=== PATIENT | female | born 1965 | race Caucasian/White ===

== ENCOUNTER 2018-07-27 09:32 | Observation (INO) ==
--- NOTE | 2018-07-27 10:03 | Emergency Department Note ---
Disposition Clinical Impression: Pituitary abnormality, Dizziness Concussion without loss of consciousness Qualifiers: Encounter type: initial encounter Qualified Code(s): S06.0X0A - Concussion without loss of consciousness, initial encounter Urinary tract infection Qualifiers: Urinary tract infection type: acute cystitis Hematuria presence: with hematuria Qualified Code(s): N30.01 - Acute cystitis with hematuria Disposition: Admitted As Inpatient Condition: Fair Time of Disposition: 12:57 Fall HPI - General Chief Complaint: ED Fall Stated Complaint: Fall/Left foot pain/Pain all over Time Seen by Provider: 07/27/18 09:39 Source: patient Mode of arrival: ambulatory Limitations: no limitations Nursing Notes Reviewed: Yes Vital Signs Reviewed: Yes - History of Present Illness HPI Narrative: Nontoxic-appearing 52-year-old female on current anticoagulation for previous pulmonary embolisms with Xarelto presents for evaluation of a fall injury sustained just prior to arrival. The patient states a history of an inoperable pituitary gland tumor that causes her to be "off balance at times". The patient states she was walking down steps in her home when she tripped and fell , landing on her back and striking the back of her head on the hardwood floor. This fall was witnessed by her significant other. She denies any loss of consciousness. She denies any vomiting. She denies any visual disturbances. She denies any prodromal chest pain, palpitations, chest pain, shortness of breath. She complains of a headache, neck pain, and left foot pain at the time of presentation. She follows with Dr. Raza, neurologist at this facility. She last saw him 2 weeks ago and was told that she need not return until one year later for follow-up, sooner should problems arise. She does admit to worsening "dizziness and being off balance" over the past couple of months. Pt Subjective Complaint: fall Onset (ago): Just TIN FLOPPER Fall From: down stairs (#) Fall Witnessed: yes Place Fall Occurred: home Loss of Consciousness: none Prolonged Down Time?: no Context: tripped/slipped Location of injury: head, neck Location of injury - extremities: Left: foot Severity: moderate Associated symptoms (after fall): Reports: headache, neck pain. Denies: numbness, weakness, chest pain, shortness of breath, abdominal pain, lightheaded , vertigo, confusion - Related Data Home Medications Medication Instructions Recorded Confirmed Ascorbate Calcium [Vitamin C] 500 mg PO DAILY 05/02/18 06/27/18 Bromocriptine Mesylate [Parlodel] 5 mg PO DAILY 05/02/18 06/27/18 Calcium Carbonate [Calcium] 1,500 mg PO DAILY 05/02/18 06/27/18 Carvedilol [Coreg] 6.25 mg PO BID 05/02/18 06/27/18 Docusate Sodium [Colace] 100 mg PO DAILY 05/02/18 06/27/18 Furosemide [Lasix] 20 mg PO HS 05/02/18 06/27/18 Insulin Glargine,Hum.rec.anlog 63 unit SQ HS 05/02/18 06/27/18 [Basaglar Kwikpen U-100] Lisinopril [Zestril] 5 mg PO DAILY 05/02/18 06/27/18 Multivitamin [One Daily Essential] 1 tab PO DAILY 05/02/18 06/27/18 Potassium Chloride [K-Tab ER] 20 meq PO DAILY 05/02/18 06/27/18 Pregabalin [Lyrica] 75 mg PO TID 05/02/18 06/27/18 Vilazodone HCl [Viibryd] 40 mg PO DAILY 05/02/18 06/27/18 diazePAM [Valium] 10 mg PO TID 05/02/18 06/27/18 Mupirocin [Bactroban Oint] 1 appl TP DAILY 05/28/18 06/27/18 Rivaroxaban [Xarelto] 20 mg PO DAILY 05/28/18 06/27/18 Spironolactone [Aldactone] 25 mg PO BID 05/28/18 06/27/18 Previous Rx's Medication Instructions Recorded Acetaminophen [Tylenol] 650 mg PO Q6HR PRN tablet 05/07/18 Atorvastatin [Lipitor] 40 mg PO HS tablet 05/07/18 Furosemide [Lasix] 40 mg PO QAM tablet 05/07/18 Loratadine [Claritin] 10 mg PO DAILY tablet 05/07/18 Omeprazole [PriLOSEC] 20 mg PO DAILY capsule. 05/07/18 Judah Williamson [WHEELED WALKER] 1 each .ROUTE AD #1 each 05/07/18 Rivaroxaban [Xarelto] 20 mg PO DAILY #30 tablet 06/27/18 Allergies Allergy/AdvReac Type Severity Reaction Status Date / Time Penicillins Allergy Swelling Verified 06/27/18 13:56 of Lip/Tongue/Throat codeine AdvReac Vomiting Verified 06/27/18 13:56 All systems ED: reviewed and negative except as stated. Review of Systems: As Per HPI Constitutional: Denies: fever, chills, weakness, weight change Eyes: Denies: eye pain, eye discharge, vision change ENT ED: Denies: ear pain, throat pain, dental pain, hearing loss, epistaxis, congestion, dysphagia Cardiovascular: Denies: chest pain, palpitations, dyspnea on exertion, edema, syncope Respiratory: Denies: cough, dyspnea, wheezes, hemoptysis, stridor Gastrointestinal: Denies: abdominal pain, nausea, vomiting, diarrhea, constipation, hematemesis, melena, hematochezia Genitourinary: Denies: dysuria, frequency, hematuria, discharge Musculoskeletal: Reports: as per HPI, neck pain, arthralgia (left foot pain). Denies: back pain, myalgia Integumentary: Denies: rash, abrasion, lesions Neurological: Reports: as per HPI, headache. Denies: weakness, numbness, paresthesias, confusion, abnormal gait, vertigo Psychiatric: Denies: anxiety, depression, suicidal thoughts, homicidal thoughts , auditory hallucinations, visual hallucinations Endocrine: Denies: fatigue Hematological/Lymphatic: Denies: easy bleeding, easy bruising Allergic/Immunologic: Denies: facial swelling, urticaria Fall PMH - Past Medical History Medical history: Reports: diabetes, hypertension, other Surgical history: Reports: cholecystectomy (1991), orthopedic, other (carpal tunnel both wrists 2008), other (one ovary removed 2012) Psychiatric history: Reports: anxiety, depression - Social History Smoking Status: 2nd Hand Smoke Exposure Alcohol use: Reports: none Drug use: Reports: none Physical Exam - General Limitations: no limitations General appearance: alert, in no apparent distress - Head Head exam: atraumatic, normocephalic, normal inspection - Expanded Head Exam Head exam physicial: Absent: laceration, abrasion, contusion, hematoma, raccoon eyes, Sun's sign - Eye Eye exam: Present: normal appearance, PERRL, EOMI. Absent: nystagmus - ENT ENT exam: mucous membranes moist - Expanded ENT Exam External ear exam: Present: normal external inspection TM/Canal: Hemotympanum: Negative, Erythema: Negative, Bulging: Negative, Effusion: Negative, Perforation: Negative, Loss of Landmarks: Negative, Foreign body: Negative, Cerumen impaction: Negative, Canal discharge: Negative, Canal tenderness: Negative Nose exam: negative: rhinorrhea - Neck Neck exam: Present: normal inspection, full ROM, tenderness (Midline, cervical spine) - Chest Chest inspection: Present: normal inspection, symmetric chest wall rise - Respiratory Respiratory exam: Present: normal lung sounds bilaterally, respiratory distress. Absent: wheezes, stridor, accessory muscle use, prolonged expiratory phase - Cardiovascular Cardiovascular exam: Present: regular rate, normal rhythm, normal heart sounds - Abdominal Exam Abdominal exam: Present: soft, Non-Tender, normal bowel sounds. Absent: trauma - Extremities Exam Extremities exam: Present: normal inspection - Expanded Lower Extremity Exam Knee exam: Present: normal inspection, full ROM Lower leg exam: Present: normal inspection, full ROM Ankle exam: Present: normal inspection, full ROM. Absent: tenderness, tenderness over talofibular lig Foot/toe exam: Present: tenderness (distal/lateral left foot). Absent: swelling , ecchymosis, deformity, calcaneal tenderness, tenderness at base of 5th metatarsal Neurovascular/Tendon exam: Present: normal capillary refill. Absent: pulse deficit, tendon deficit, extremity cold to touch - Back Exam Back exam: Present: normal inspection, full ROM. Absent: tenderness, vertebral tenderness - Neurological Exam Neurological exam: Present: alert, oriented X3 - Expanded Neurological Exam Patient oriented to: Present: person, place, time Motor strength - LUE: 5/5 Motor strength - RUE: 5/5 Motor strength - LLE: 5/5 Motor strength - RLE: 5/5 Coma Scale Eye Opening: Spontaneous Coma Scale Motor Response: Obeys Commands Coma Scale Verbal Response: Oriented Coma Scale Total: 15 - Psychiatric Psychiatric exam: Present: normal affect, normal mood - Skin Skin exam: Present: warm, dry, intact, normal color Course Course Narrative: 4065: I spoke with Dr. Tirado, neurology degreasing solution reclaimer. Dr. Tirado states that if we feel that admission to the hospital is warranted for observation and potential further imaging, that neurology would see the patient in house. He does request if that is the case, that we repeat an MRI of the brain without repeat MRA. I have discussed this patient's case, history, radiology work up, and discussion with neurology with Dr. Barber, ED attending. Dr. Barber does in fact recommend admission to the hospital for further observation. I have discussed this plan with the patient and her spouse, both being in agreement with this plan. 1128: I spoke with the admitting hospitalist regarding admission to the hospitalist care with neurology consultation. The hospitalist requests screening labs be performed prior to further discussion regarding admission to the hospitalist care. 1250: I spoke with the admitting hospitalist again. The patient has been accepted to the hospitalist service with inpatient neurology consultation. IV fluids and IV antibiotics will be given. Urinalysis did show a nitrite positive urinary tract infection. Vital Signs Temperature 98.0 F 07/27/18 09:38 Pulse Rate 84 07/27/18 09:38 Respiratory Rate 18 07/27/18 09:38 Blood Pressure 106/54 07/27/18 09:38 O2 Sat by Pulse Oximetry 95 07/27/18 09:38 Temperature 98.0 F 07/27/18 09:50 Pulse Rate 77 07/27/18 12:42 Respiratory Rate 13 07/27/18 12:42 Blood Pressure 106/80 07/27/18 12:42 O2 Sat by Pulse Oximetry 95 07/27/18 12:42 Oxygen Delivery Oxygen Delivery Room Air Fall - Medical Records Medical records reviewed: Yes I reviewed the patient's medical records. - Lab Data Lab results narrative: Lab Results 07/27/18 07/27/18 07/27/18 Range/Units 11:48 12:07 12:07 WBC 11.6 H (4.3-11.1) K/mcL RBC 4.61 (3.82-4.97) M/mcL Hgb 13.9 (11.5-15.4) g/dL Hct 40.0 (35.3-44.9) % MCV 86.8 (83.0-100.0) fL MCH 30.2 (28.0-33.3) pg MCHC 34.8 (31.6-35.5) g/dL RDW 13.0 (11.5-14.5) % Plt Count 220 (140-400) K/mcL MPV 10.4 (9.4-12.4) fL Immature Gran % 0.4 (0-4) % Seg Neutrophils % 69.1 % Lymphocytes % 21.2 % Monocytes % 6.7 % Eosinophils % 2.3 % Basophils % 0.3 % Neutrophils # 8.0 (1.6-8.9) K/mcL Lymphocytes # 2.5 (0.6-4.6) K/mcL Monocytes # 0.8 (0.0-1.3) K/mcL Eosinophils # 0.3 (0.0-0.6) K/mcL Basophils # 0.0 (0.0-0.2) K/mcL Sodium 136 (136-145) mEq/L Potassium 4.5 (3.5-5.1) mEq/L Chloride 99 (98-107) mEq/L Carbon Dioxide 28 (23-29) mEq/L BUN 19 (6-20) mg/dL Creatinine 1.40 H (0.60-1.20) mg/dL Est GFR ( Amer) 48 L (> 60) Est GFR (Non-Af Amer) 40 L (> 60) BUN/Creatinine Ratio 14 (6-26) Glucose 191 H (70-105) mg/dL Calculated Osmolality 289 (280-300) Calcium 9.8 (8.6-10.3) mg/dL Troponin I < 0.03 (< 0.04) ng/mL Urine Color Yellow (Yellow) Urine Clarity Hazy A (Clear) Urine pH 6.0 (5.0-8.0) pH Units Ur Specific [place] 1.011 (1.010-1.025) Urine Protein 30 H (Neg-Trace) mg/dL Urine Glucose (UA) Normal (Normal) mg/dL Urine Ketones Negative (Negative) mg/dL Urine Blood Large H (Negative) Urine Nitrite Positive A (Negative) Urine Bilirubin Negative (Negative) Urine Urobilinogen Normal (Normal) mg/dL Ur Leukocyte Esterase Moderate H (Negative) Urine Microscopic RBC TNTC H (0-3) per hpf Urine Microscopic WBC 50-100 H (0-3) per hpf Ur Squamous Epith Cells Many H (None-Few) per lpf Urine Bacteria Many H (None-Few) per hpf Hyaline Casts None Seen (None-Few) per lpf Ur Culture Indicated? NO. A (NO) Result diagrams: 07/27/18 12:07 10/13/18 12:07 Lab Results 07/27/18 07/27/18 07/27/18 Range/Units 11:48 12:07 12:07 WBC 11.6 H (4.3-11.1) K/mcL RBC 4.61 (3.82-4.97) M/mcL Hgb 13.9 (11.5-15.4) g/dL Hct 40.0 (35.3-44.9) % MCV 86.8 (83.0-100.0) fL MCH 30.2 (28.0-33.3) pg MCHC 34.8 (31.6-35.5) g/dL RDW 13.0 (11.5-14.5) % Plt Count 220 (140-400) K/mcL MPV 10.4 (9.4-12.4) fL Immature Gran % 0.4 (0-4) % Seg Neutrophils % 69.1 % Lymphocytes % 21.2 % Monocytes % 6.7 % Eosinophils % 2.3 % Basophils % 0.3 % Neutrophils # 8.0 (1.6-8.9) K/mcL Lymphocytes # 2.5 (0.6-4.6) K/mcL Monocytes # 0.8 (0.0-1.3) K/mcL Eosinophils # 0.3 (0.0-0.6) K/mcL Basophils # 0.0 (0.0-0.2) K/mcL Sodium 136 (136-145) mEq/L Potassium 4.5 (3.5-5.1) mEq/L Chloride 99 (98-107) mEq/L Carbon Dioxide 28 (23-29) mEq/L BUN 19 (6-20) mg/dL Creatinine 1.40 H (0.60-1.20) mg/dL Est GFR ( Amer) 48 L (> 60) Est GFR (Non-Af Amer) 40 L (> 60) BUN/Creatinine Ratio 14 (6-26) Glucose 191 H (70-105) mg/dL Calculated Osmolality 289 (280-300) Calcium 9.8 (8.6-10.3) mg/dL Troponin I < 0.03 (< 0.04) ng/mL Urine Color Yellow (Yellow) Urine Clarity Hazy A (Clear) Urine pH 6.0 (5.0-8.0) pH Units Ur Specific [place] 1.011 (1.010-1.025) Urine Protein 30 H (Neg-Trace) mg/dL Urine Glucose (UA) Normal (Normal) mg/dL Urine Ketones Negative (Negative) mg/dL Urine Blood Large H (Negative) Urine Nitrite Positive A (Negative) Urine Bilirubin Negative (Negative) Urine Urobilinogen Normal (Normal) mg/dL Ur Leukocyte Esterase Moderate H (Negative) Urine Microscopic RBC TNTC H (0-3) per hpf Urine Microscopic WBC 50-100 H (0-3) per hpf Ur Squamous Epith Cells Many H (None-Few) per lpf Urine Bacteria Many H (None-Few) per hpf Hyaline Casts None Seen (None-Few) per lpf Ur Culture Indicated? NO. A (NO) - Radiology Data Radiology results reviewed: Yes I reviewed the patient's radiology results. Cervical Spine CT 07/27/18 09:57 IMPRESSION: No acute fracture or listhesis of the cervical spine evident. D/ / Donta Salinas MD / Donta Salinas MD Interpreting Provider: Donta Salinas MD Foot X-Ray 07/27/18 09:57 IMPRESSION: Negative D/ / Young Watson MD / Young Watson MD Interpreting Provider: Young Watson MD Head CT 07/27/18 09:57 IMPRESSION: No acute intracranial abnormality. D/ / Antonella Stanley MD / Antonella Stanley MD Interpreting Provider: Antonella Stanley MD - EKG Data EKG attestation: Yes I reviewed and interpreted this EKG. EKG results narrative: EKG shows sinus rhythm at a rate of 75 bpm. ID interval 143, QRS duration 91, QT/QTc interval 390/436. No ectopy noted. No ST elevation. No significant changes when compared to an EKG dated from 05/02/18. Attestation Statement - Attestation Attestation: For this encounter, I have reviewed the [employer] or PA documentation, treatment plan, and medical decision making; and I have had face to face time with this patient. Pt is a 52 yo wf, hx of pituitary tumor with chronic dizziness and hx of multiple falls, who presents to the ER wiht c/o worsening dizziness, fall TIN FLOPPER with CHI and neck pain, foot pain s/p fall. Pt reports that her dizziness has worsened over the past few weeks, and was seen by her Neurologist, who ordered outpt MRI/MRA. Patient states she was called yesterday and told that her imaging studies were normal. Patient's had continued symptoms and more frequent and more intense dizziness. Patient fell this morning and sustained head injury and is on blood thinners, patient takes Xarelto for PE. Patient denies any preceding shortness of breath, chest pain or palpitations, no lower extremity pain or cramping. Patient had no vomiting, no visual changes, no focal neurologic deficits. GCS equals 15 on arrival. I agree with patient's physical exam findings as documented. Vital signs are stable. Patient underwent CT imaging of the head neck which were unremarkable for any cranial hemorrhage or changes. Patient's foot film was also within normal limits. Reviewed patient's MRI/MRA that she had recently and concerned with findings of MCA narrowing. Patient has no other old imaging study for comparison. Spoke with neurology out of concern for observation with serial CT imaging due to anticoagulants as well as MCA findings on MRA and they agreed to consult on the patient. Case was discussed with hospitalist who requested baseline labs be performed. Laboratory evaluation was unremarkable with the exception of UTI patient was started on antibiotics. Patient will be admitted to the hospitalist service for further evaluation and management.
[2018-07-27] MEDS ORDERED: *HR* HYDROcodone/Acet 5/325 mg TABLET PO ONE ×2 (10:41→17:05)
[2018-07-27 12:07] LABS: Bilirubin,Urine Negative (Negative); Blood,Urine Large (Negative); Color,Urine Yellow (Yellow); Glucose,Urine (UA) Normal (Normal); Ketones,Urine Negative (Negative); Leukocyte Esterase,Urine Moderate (Negative); Nitrite,Urine Positive (Negative); Protein,Urine 30 mg/dL (Neg-Trace); Specific Gravity,Urine 1.011 (1.010-1.025); Urobilinogen,Urine Normal (Normal)
[2018-07-27 12:09] LABS: Bacteria,Urine Many per hpf (None-Few); Hyaline Casts,Urine None Seen per lpf (None-Few); RBC,Urine TNTC per hpf (0-3); Squamous Epithelial Cell,Urine Many per lpf (None-Few); WBC,Urine 50-100 per hpf (0-3)
[2018-07-27 12:10] LABS: Clarity,Urine Hazy (Clear)
[2018-07-27 12:24] LABS: Basophils % 0.3 %; Eosinophils # 0.3 K/mcL (0.0-0.6); Eosinophils % 2.3 %; Hemoglobin 13.9 g/dL (11.5-15.4); Immature Granulocytes % 0.4 % (0-4); Lymphocytes # 2.5 K/mcL (0.6-4.6); Lymphocytes % 21.2 %; Mean Corpuscular HGB Conc 34.8 g/dL (31.6-35.5); Mean Corpuscular Hemoglobin 30.2 pg (28.0-33.3); Mean Corpuscular Volume 86.8 fL (83.0-100.0); Mean Platelet Volume 10.4 fL (9.4-12.4); Monocytes # 0.8 K/mcL (0.0-1.3); Monocytes % 6.7 %; Platelet Count 220 K/mcL (140-400); Red Blood Count 4.61 M/mcL (3.82-4.97); Segmented Neutrophils % 69.1 %
[2018-07-27 12:45] LABS: BUN/Creatinine Ratio 14 (6-26); Blood Urea Nitrogen 19 mg/dL (6-20); Calcium 9.8 mg/dL (8.6-10.3); Carbon Dioxide 28 mEq/L (23-29); Chloride 99 mEq/L (98-107); Glucose 191 mg/dL (70-105); Osmolality,Calculated 289 (280-300); Potassium 4.5 mEq/L (3.5-5.1); Sodium 136 mEq/L (136-145); eGFR For Non-African Americans 40 (> 60)
[2018-07-27 12:46] LABS: Troponin I < 0.03 ng/mL (< 0.04)
[2018-07-27] MEDS ORDERED: 0.9 % Sodium Chloride 1,000 ML IVC ONE (12:48)
--- NOTE | 2018-07-27 13:17 | Internal Med History&Physical ---
Date of Encounter: 07/27/18 Time of Encounter: 13:11 Internal Medicine - H&P: HPI Chief complaint: fall Admitted From: Home Plans for Post Hospital Care: Home History of present illness: Ms. Crawford is a 52 year old morbidly obese female with history of PE on xarelto , noperable pituitary gland tumor, difficulty with balance, DM and HFpEF presented to the emergency department with complaint of fall. As per patient she was walking down steps from her kitchen to her laundry room where she tripped and fell, landing on her back and striking the back of her head on the hardwood floor. The fall was witnessed by her . He denies any loss of consciousness, palpitations prior to the fall, vision changes, foaming at the mouth, abnormal movements of her extremities or bowel/bladder incontinence. Since she is on xarelto decided to bring her to the emergency department. She reports that she has had problems with her balance for the past [address] Raza who is a neurologist at [facility] for her symptoms. She reports that she recently had an MRI performed and was called by Dr. Cardenas nurse and was told that her MRI was not significant for any acute findings and was told to continue her medications as prescribed. She does report that her urine has changed color in the past few weeks, denies foul smell to her urine, denies hematuria, she does report incontinence and has to wear pads, she also reports itching and mild dysuria. She does have history of urinate tract infections. She reports that she followed up with a doctor at [facility] who recommended her to only have 2 small glasses of fluid a day and she is been compliant with it. She denies fever, chills, nausea, vomiting, diarrhea, chest pain, palpitations, shortness of breath. She is compliant with all her medications. In the ED CT head was performed which was negative for any acute intracranial abnormality, x-ray of the left foot was performed which was negative for any acute fracture, CT of the cervical spine was performed and it did not show any acute fractures. Neurology was consulted by the emergency department physician who recommended to continue her home medications and obtain an MRI without contrast. Past Med Surg Social Fam HX - Past Medical History Medical history: diabetes, hypertension, other Additional medical history: pituitary tumor- inoperable Psychiatric history: anxiety, depression - Past Surgical History Surgical History: cholecystectomy (1991), orthopedic, other (carpal tunnel both wrists 2008), other (one ovary removed 2012) Additional surgical history: RIGHT OVARECTOMY, AND BILATERAL CARPAL TUNNEL SX. - Social History Smoking Status: 2nd Hand Smoke Exposure Smokeless Tobacco Status: No Alcohol use: none Drug use: none - Family History Paternal Hx Family Cardiac Disorders: Yes (fater and mother) Father Living Status: Hx Family Cardiac Disorders: Yes (leaky heart valve) Mother Living Status: Still Living Hx Family Cardiac Disorders: Yes (HTN) Hx Family Endocrine Disorder: Yes (DIABETES MELLITUS.) Internal Medicine - H&P: Meds Ascorbate Calcium [Vitamin C] 500 mg PO DAILY 05/02/18 [History] Bromocriptine Mesylate [Parlodel] 5 mg PO DAILY 05/02/18 [History] Calcium Carbonate [Calcium] 1,500 mg PO DAILY 05/02/18 [History] Carvedilol [Coreg] 6.25 mg PO BID 05/02/18 [History] Docusate Sodium [Colace] 100 mg PO DAILY 05/02/18 [History] Furosemide [Lasix] 20 mg PO HS 05/02/18 [History] Insulin Glargine,Hum.rec.anlog [Basaglar Kwikpen U-100] 63 unit SQ HS 05/02/18 [ History] Lisinopril [Zestril] 5 mg PO DAILY 05/02/18 [History] Multivitamin [One Daily Essential] 1 tab PO DAILY 05/02/18 [History] Potassium Chloride [K-Tab ER] 20 meq PO DAILY 05/02/18 [History] Pregabalin [Lyrica] 75 mg PO TID 05/02/18 [History] Vilazodone HCl [Viibryd] 40 mg PO DAILY 05/02/18 [History] diazePAM [Valium] 10 mg PO TID 05/02/18 [History] Acetaminophen [Tylenol] 650 mg PO Q6HR PRN tablet 05/07/18 [Rx] Atorvastatin [Lipitor] 40 mg PO HS tablet 05/07/18 [Rx] Furosemide [Lasix] 40 mg PO QAM tablet 05/07/18 [Rx] Loratadine [Claritin] 10 mg PO DAILY tablet 05/07/18 [Rx] Omeprazole [PriLOSEC] 20 mg PO DAILY capsule. 05/07/18 [Rx] Walker W Wheels [WHEELED WALKER] 1 each .ROUTE AD #1 each 05/07/18 [Rx] Mupirocin [Bactroban Oint] 1 appl TP DAILY 05/28/18 [History] Rivaroxaban [Xarelto] 20 mg PO DAILY 05/28/18 [History] Spironolactone [Aldactone] 25 mg PO BID 05/28/18 [History] Rivaroxaban [Xarelto] 20 mg PO DAILY #30 tablet 06/27/18 [Rx] 3 Allergy/AdvReac Type Severity Reaction Status Date / Time Penicillins Allergy Swelling Verified 06/27/18 13:56 of Lip/Tongue/Throat codeine AdvReac Vomiting Verified 06/27/18 13:56 All Systems PM: review of systems was performed and is negative for pertinent findings except as documented above in the HPI. - Constitutional Vitals: Temp Pulse Resp BP Pulse Ox 98.0 F 77 13 106/80 95 07/27/18 09:50 07/27/18 12:42 07/27/18 12:42 07/27/18 12:42 07/27/18 12:42 Exam: General: Patient is alert, oriented, no acute distress, Head: atraumatic, normocephalic, Eye: normal appearance, PERRL, no scleral icterus, no conjunctival injection ENT: mucous membranes moist, normal external ear exam Neck: normal inspection, trachea midline, full ROM, no carotid bruits Chest: normal inspection, symmetric chest rise Respiratory: Decreased breath sounds secondary to body habitus, Good respiratory effort. Bilateral breath sounds are clear without wheezing, crackles, or rhonchi. Cardiovascular: Distant heart sounds secondary to body habitus, Regular rate and rhythm. s1 and s2 No clicks, rubs, gallops, or murmors. Abdomen: Bowel sounds present normoactive x-4 quadrants. Abdomen is soft, nondistended. no Epigastric tenderness. No guarding or rebound. No organomegaly noted, obese musculoskeletal: Spontaneously moving all extremities. no edema, no calf tenderness Skin: warm, dry, intact. Neuro: Alert and oriented x4. Sensation light touch intact. Cranial nerves 2- 12 is intact. Not aphasic, rapid hand movements intact, fpsolj-fq-vwgd intact , heel to guerra intact Psych: Patient's affect is normal Internal Med - H&P Results - Labs CBC & Chem 7: 07/27/18 12:07 07/27/18 12:07 - EKG Data -: EKG Interpreted by Myself (sinus rhythm, low voltage, non-specific st-t changes , QT 436) - EKG Data Prior EKG available for review: no - Assessment and plan (1) Concussion without loss of consciousness Current Visit: Yes Status: Acute Assessment and plan: Status post mechanical fall CT head and cervical spine negative for any acute intracranial bleeding Neuro checks every 4 hours Tylenol for headache Neurology was consulted ( Dr. Tirado) will follow further recommendations MRI head w/o contrast ordered as per neurologist recs Telemetry monitoring Continue all medications if not contraindicated Physical therapy consult Fall precautions/seziure precaution TSH, A1c, vitamin D CT head IMPRESSION: No acute intracranial abnormality. CT cervical spine IMPRESSION: No acute fracture or listhesis of the cervical spine evident. MRI 05/17/18 Asymmetric pituitary tissue is not significantly changed allowing for differences in technique and slice selection. Solitary focus of increased signal in the parietal subcortical white matter, unchanged. No acute intracranial abnormality otherwise. No aneurysm. Multifocal MCA narrowing, right greater than left. This is noted distal to the M1 segments. Qualifiers: Encounter type: initial encounter Qualified Code(s): S06.0X0A - Concussion without loss of consciousness, initial encounter (2) Fall Current Visit: Yes Status: Acute Assessment and plan: management as above Qualifiers: Encounter type: initial encounter Qualified Code(s): W19.XXXA - Unspecified fall, initial encounter (3) Pituitary abnormality Current Visit: Yes Status: Chronic Assessment and plan: Follows with Dr. Raza as outpatient Neurologist gis consultant Dr. Myles was consulted by the emergency department physician who recommended MRI without contrast continue bromocriptine (4) Acute renal failure Current Visit: Yes Status: Acute Assessment and plan: Creatinine was 0.89 on April 2018 now trended up to 1.4 Was told by her doctor at [facility] to fluid restrict herself to 60 ounces a day Most likely secondary to dehydration will rule out obstruction We will hold Lasix, everett, spironolactone for now until renal function improves Renal ultrasound We will start her on gentle hydration with Ns at 50 cc per hour, watch for overload Avoid nephrotoxic medications Strict intake and output We will follow BMP in the morning Qualifiers: Acute renal failure type: unspecified Qualified Code(s): N17.9 - Acute kidney failure, unspecified (5) Urinary tract infection Current Visit: Yes Status: Acute Assessment and plan: Started on ciprofloxacin Follow urine cultures Qualifiers: Urinary tract infection type: acute cystitis Hematuria presence: with hematuria Qualified Code(s): N30.01 - Acute cystitis with hematuria (6) (HFpEF) heart failure with preserved ejection fraction Current Visit: Yes Status: Acute Assessment and plan: ACEI, lasix and spironolactone held secondary to ARF Continue Coreg, Lipitor Fluid restriction TTE 04/2018 LVEF 70%. Normal LV chamber size, wall thickness and function. Pseudonormal diastolic function. Normal right ventricular structure and function. RV:LV is less than one. No evidence of pulmonary hypertension. No significant valvular dysfunction. (7) Diabetes mellitus type 2 in obese Current Visit: No Status: Chronic Assessment and plan: Insulin sliding scale Will send A1c (8) Morbidly obese Current Visit: Yes Status: Acute Assessment and plan: Nutrition consult (9) History of pulmonary embolism Current Visit: Yes Status: Acute Assessment and plan: continue xarelto (10) DVT prophylaxis Current Visit: No Status: Acute Assessment and plan: on xarelto - Time Spent With Patient Total time spent is greater than 50% in coordination of care (as documented) at patient's floor/unit and/or counseling patient:
[2018-07-27] MEDS ORDERED: Naloxone 0.4 MG/ML INJ IVP PRN (13:31)
[2018-07-27] MEDS ORDERED: D5% in Water 1,000 ML IVC PRN (13:47)
[2018-07-27] MEDS ORDERED: Dextrose Gel 15 GM/37.5 ML TUBE PO PRN ×2 (13:47)
[2018-07-27] MEDS ORDERED: *HR* Dextrose 50 % in Water (Syg) 50 ML SYRINGE IVP PRN (13:47)
[2018-07-27] MEDS ORDERED: Acetaminophen 325 MG TABLET PO PRN (13:48)
[2018-07-27 14:28] LABS: Phosphorous 3.9 mg/dL (2.7-4.5)
[2018-07-27] MEDS: Pregabalin 75 MG CAPSULE PO SCH ×2 (15:59→21:20)
[2018-07-27] MEDS: diazePAM 10 MG TABLET PO SCH ×2 (15:59→21:20)
[2018-07-27] MEDS: 0.9 % Sodium Chloride 1,000 ML IVC SCH (16:00)
[2018-07-27] MEDS: Insulin LISPRO 300 UNITS/3 ML VIAL SQ SCH ×2 (17:21→21:19)
[2018-07-27] MEDS: Insulin DETEMIR 100 UNIT/ML X5UNITS SQ SCH (21:19)
[2018-07-28 07:19] LABS: Basophils % 0.5 %; Eosinophils # 0.2 K/mcL (0.0-0.6); Eosinophils % 2.5 %; Hematocrit 35.6 % (35.3-44.9); Immature Granulocytes % 0.4 % (0-4); Lymphocytes # 2.4 K/mcL (0.6-4.6); Mean Corpuscular HGB Conc 34.3 g/dL (31.6-35.5); Mean Corpuscular Hemoglobin 30.3 pg (28.0-33.3); Mean Corpuscular Volume 88.3 fL (83.0-100.0); Mean Platelet Volume 10.4 fL (9.4-12.4); Monocytes # 0.7 K/mcL (0.0-1.3); Monocytes % 7.9 %; Neutrophils # 5.2 K/mcL (1.6-8.9); Platelet Count 191 K/mcL (140-400); Red Blood Count 4.03 M/mcL (3.82-4.97); Red Cell Distribution Width 13.1 % (11.5-14.5); Segmented Neutrophils % 60.7 %
[2018-07-28 07:27] LABS: Hemoglobin 12.2 g/dL (11.5-15.4)
[2018-07-28 07:49] LABS: Calcium 8.6 mg/dL (8.6-10.3); Magnesium 1.7 mg/dL (1.6-2.6); Potassium 3.7 mEq/L (3.5-5.1)
[2018-07-28 07:56] LABS: Thyroid Stimulating Hormone 4.658 mcIU/mL (0.340-5.600)
[2018-07-28] MEDS: Insulin LISPRO 300 UNITS/3 ML VIAL SQ SCH ×4 (08:27→21:25)
[2018-07-28] MEDS: Loratadine 10 MG TABLET PO SCH (08:29)
[2018-07-28] MEDS: Pregabalin 75 MG CAPSULE PO SCH ×3 (08:30→21:30)
[2018-07-28] MEDS: Multivit/Ca/Min/Fe/FA 1 TAB TABLET PO SCH (08:31)
[2018-07-28] MEDS: (Vilazodone Hcl [Viibryd] 40 MG) PO SCH (08:31)
[2018-07-28] MEDS: diazePAM 10 MG TABLET PO SCH ×3 (08:32→21:30)
[2018-07-28] MEDS: Ascorbic Acid 500 MG TABLET PO SCH (08:32)
[2018-07-28] MEDS: *HR* HYDROcodone/Acet 5/325 mg TABLET PO PRN ×3 (08:33→20:20)
[2018-07-28 08:43] LABS: Estimated Average Glucose 146 mg/dl; Hemoglobin A1C 6.7 %
[2018-07-28] MEDS: 0.9 % Sodium Chloride 1,000 ML IVC SCH (10:53)
--- NOTE | 2018-07-28 12:22 | Internal Med Progress Note ---
Hospitalist Progress Note - Encounter Date of Encounter: 07/28/18 Time of Encounter: 08:15 - Subjective Interval History: Patient is lying in bed. She describes a severe headache which is always present. She has been trying to manage it as outpatient but so far nothing seems to have helped. She was following up with neurology as outpatient. She denies any chest pain, fevers or chills. She denies any focal weakness or numbness. - Exam Vitals: Temp Pulse Resp BP Pulse Ox 97.8 F 75 16 106/71 93 07/28/18 11:19 07/28/18 11:19 07/28/18 11:19 07/28/18 11:19 07/28/18 11:19 Exam: General: Patient is alert, mild distress, morbidly obese, oriented x 3 Respiratory: Good respiratory effort. Normal breath sounds. No wheezing or crackles. Cardiovascular: Regular rate and rhythm. s1 and s2 normal No clicks, rubs, gallops, or murmurs. No pedal edema Abdomen: Abdomen is soft, nontender. Bowel sounds are present Musculoskeletal: Spontaneously moving all extremities Skin: warm, dry, intact. Neuro: Alert oriented x 3 normal cranial nerves, no focal deficits - Assessment and Plan (1) Concussion without loss of consciousness Current Visit: Yes Status: Acute Assessment and Plan: From fall. Mechanical fall from loss of balance. PTOT consulted. Encouraged to use frontwheel walker while ambulating anywhere. (2) Diabetes mellitus type 2 in obese Current Visit: No Status: Chronic Assessment and Plan: Continue current insulin regimen. Monitor blood sugars. Continue diabetic diet. (3) DVT prophylaxis Current Visit: No Status: Acute Assessment and Plan: On Xarelto (4) Pituitary abnormality Current Visit: Yes Status: Chronic Assessment and Plan: Chronic non-resectable pituitary tumor. Evaluated with MRI of the brain yesterday which showed a stable lesion. She also has an abnormal lesion in the subcortical white matter of the left parietal lobe which was also present on her prior MRI. (5) Urinary tract infection Current Visit: Yes Status: Acute Assessment and Plan: Suspected urinary tract infection. Currently on antibiotics with ciprofloxacin. Will follow culture results. (6) Acute renal failure Current Visit: Yes Status: Resolved Assessment and Plan: Resolved with IV hydration. We will stop IV fluids at this time. Encourage oral hydration. (7) (HFpEF) heart failure with preserved ejection fraction Current Visit: Yes Status: Chronic Assessment and Plan: Chronic. Stable. Not in acute exacerbation at this time (8) Morbidly obese Current Visit: Yes Status: Acute (9) Fall Current Visit: Yes Status: Acute Assessment and Plan: Fall precautions. Physical therapy consultation. (10) History of pulmonary embolism Current Visit: Yes Status: Acute Assessment and Plan: Continue Xarelto - Time Spent with Patient Total time spent is greater than 50% in coordination of care (as documented) at patient's floor/unit and/or counseling patient: Internal Medicine: Result - Labs CBC & Chem 7: 07/28/18 06:49 07/28/18 06:49 Labs: Short CBC 07/28/18 Range/Units 06:49 WBC 8.5 (4.3-11.1) K/mcL Hgb 12.2 D (11.5-15.4) g/dL Hct 35.6 (35.3-44.9) % Plt Count 191 (140-400) K/mcL Neutrophils # 5.2 (1.6-8.9) K/mcL BMP 07/28/18 06:49 Sodium 135 L Potassium 3.7 Chloride 100 Carbon Dioxide 26 BUN 19 Creatinine 1.19 Glucose 186 H Calcium 8.6 - Impressions Impressions Retroperitoneum Ultrasound 07/27/18 13:54 IMPRESSION: 1. Focal renal parenchymal thinning within the mid left kidney consistent with an area of scarring. 2. Otherwise, unremarkable renal ultrasound. D/ / Donta Salinas MD / Donta Salinas MD Interpreting Provider: Donta Salinas MD Consult Discharge Plan - Plan Referrals: Clarisa Sylvester, [employer] [Primary Care Provider] - (1) Concussion without loss of consciousness Qualifiers: Encounter type: initial encounter Qualified Code(s): S06.0X0A - Concussion without loss of consciousness, initial encounter (5) Urinary tract infection Qualifiers: Urinary tract infection type: acute cystitis Hematuria presence: with hematuria Qualified Code(s): N30.01 - Acute cystitis with hematuria (6) Acute renal failure Qualifiers: Acute renal failure type: unspecified Qualified Code(s): N17.9 - Acute kidney failure, unspecified (9) Fall Qualifiers: Encounter type: initial encounter Qualified Code(s): W19.XXXA - Unspecified fall, initial encounter
--- NOTE | 2018-07-28 12:33 | Neurology - Consult Note ---
Date of Encounter: 07/28/18 Time of Encounter: 12:23 Assessment and Plan (1) Fall Current Visit: Yes Status: Acute Been experiencing some intermittent worsening gait and falling in the last few weeks or so without definitive cause. has some nonspecific visual difficulty may or may not be related to pituitray gland tumor and she may have intracranial hypertension that can cause blurry vision and she is currently being treated with her neuroophthalmologist at [facility]. Last seen one weeks ago. Other than visual difficulty, she does have rather increased DTRs therefore it would be my suggestion that she gets an MRI of cervical spine to assess possibility of cervical disc disease with myelopathy. 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 Repeat MRI of brain without contrast showed no changes from previous study and specifically no evidence of pituitary apoplexy or infarct so there is no neurological emergency here. She is advised to follwo up with her neuroophthalmologist as scheduled. Plan is to get MRI of cervical spine to make sure that she does not have cervical spinal cord pathology and if MRI of cervical spine returns negative for spinal cord pathology then she can be discharged although she may benefit from physial therapy. History of Present Illness Chief complaint: fall, balacne difficulty and headache HPI: Ms. Crawford is a 52 year old female with pituitary gland macroanoma, with hyperprolactinemia, morbid obesity, DM who developed a fall. Patient known to neurology service here and she was seen 07/22/2018 neuroopthalmologist at [facility]. Had some vision changes recently. She has been experiencing some balance difficulty and has to use a cane since the last few weeks and she falls intermittently. She says that she just fall and did not trip herself yesterday. She has some numbness and pain to her left foot as a result of the fall. She states that when she walks she tends to lean toward the right side. She has history of pituitary tumor with cavernous extension. There does not appear to be compression to the optic chiasm. She saw neuroophthalmoligst who did eye examination with her complaints of visual changes which are subjective in nature. It is thought that her balance difficulty has no relationship with the pituitary mass. Patient has worsening headaches, says that norco helped the headaches well. Per medical records she initially was prepared for pituitary gland mass resection but this was on hold due to the mass invade the cavernous sinus and it was decided to first shrink the mass. Currently the is able to walk without assistance. She walks with a limp due to left foot pain so gait can not be well assessed. She has no wide based gait, no spastic gait and no ataxic gait. Past Med Surg Social Fam HX - Past Medical History Medical history: diabetes, hypertension, other Additional medical history: pituitary tumor- inoperable Psychiatric history: anxiety, depression - Past Surgical History Surgical History: cholecystectomy, orthopedic, other, other Additional surgical history: RIGHT OVARECTOMY, AND BILATERAL CARPAL TUNNEL SX. - Social History Smoking Status: 2nd Hand Smoke Exposure Smokeless Tobacco Status: No Alcohol use: none Drug use: none - Family History Paternal Hx Family Cardiac Disorders: Yes (fater and mother) Father Living Status: Hx Family Cardiac Disorders: Yes (leaky heart valve) Hx Family Respiratory Disorders: Yes Mother Living Status: Still Living Hx Family Cardiac Disorders: Yes (HTN) Hx Family Endocrine Disorder: Yes (DIABETES MELLITUS.) Medications and Allergies Ascorbate Calcium [Vitamin C] 500 mg PO DAILY 05/02/18 [History] Bromocriptine Mesylate [Parlodel] 5 mg PO HS 05/02/18 [History] Calcium Carbonate [Calcium] 1,500 mg PO DAILY 05/02/18 [History] Carvedilol [Coreg] 6.25 mg PO BID 05/02/18 [History] Docusate Sodium [Colace] 100 mg PO DAILY 05/02/18 [History] Furosemide [Lasix] 20 mg PO HS 05/02/18 [History] Insulin Glargine,Hum.rec.anlog [Basaglar Kwikpen U-100] 63 unit SQ HS 05/02/18 [ History] Lisinopril [Zestril] 5 mg PO DAILY 05/02/18 [History] Multivitamin [One Daily Essential] 1 tab PO DAILY 05/02/18 [History] Potassium Chloride [K-Tab ER] 20 meq PO DAILY 05/02/18 [History] Pregabalin [Lyrica] 75 mg PO TID 05/02/18 [History] Vilazodone HCl [Viibryd] 40 mg PO DAILY 05/02/18 [History] diazePAM [Valium] 10 mg PO TID 05/02/18 [History] Acetaminophen [Tylenol] 650 mg PO Q6HR PRN tablet 05/07/18 [Rx] Atorvastatin [Lipitor] 40 mg PO HS tablet 05/07/18 [Rx] Furosemide [Lasix] 40 mg PO QAM tablet 05/07/18 [Rx] Loratadine [Claritin] 10 mg PO DAILY tablet 05/07/18 [Rx] Omeprazole [PriLOSEC] 20 mg PO DAILY capsule. 05/07/18 [Rx] Walker W Wheels [WHEELED WALKER] 1 each .ROUTE AD #1 each 05/07/18 [Rx] Mupirocin [Bactroban Oint] 1 appl TP DAILY 05/28/18 [History] Rivaroxaban [Xarelto] 20 mg PO DAILY 05/28/18 [History] Spironolactone [Aldactone] 25 mg PO BID 05/28/18 [History] Betamethasone Dp Aug 0.05% Lot 07/27/18 [History] Buspirone HCl [Buspar] 15 mg PO TID 07/27/18 [History] Diclofenac Sodium 100 gm TP DAILY 07/27/18 [History] FluocinoNIDE 0.05% CRM 07/27/18 [History] 3 Allergy/AdvReac Type Severity Reaction Status Date / Time Penicillins Allergy Swelling Verified 06/27/18 13:56 of Lip/Tongue/Throat codeine AdvReac Vomiting Verified 06/27/18 13:56 All Systems: The remainder of the systems were reviewed and are negative Physical Examination - Vital Signs Vital Signs: Initial Vital Signs Temp Pulse Resp BP Pulse Ox 98.0 F 84 18 106/54 95 07/27/18 09:38 07/27/18 09:38 07/27/18 09:38 07/27/18 09:38 07/27/18 09:38 - Constitutional General appearance: comfortable - Neurologic Sensorimotor examination: intact Detailed motor examination: grossly full strength in all extremities Motor examination - right side: 5/5: deltoids, biceps, triceps, wrist flexion, wrist extension, geometry professor, hip flexors, tibialis Anterior, quadriceps, toe extension (EHL), plantarflexion Motor examination - left side: 55: deltoids, biceps, triceps, wrist flexion, wrist extension, hip flexors, geometry professor, quadriceps, tibialis Anterior, toe extension (EHL), plantarflexion Detailed sensory examination: intact Posture: other (None) Reflex and gait examination: other (Patient is able to walk without assistance. She limps on the left side due to left foot pain) Reflexes: Biceps: 3+, Triceps: 3+, Brachioradialis: 3+, Patella: 3+, Achilles: 3 + Mental Status Examination: awake, alert, oriented to person, oriented to place, oriented to time, follows commands appropriately, answers questions appropriately, no agnosia, no aphasia, no aproxia Cranial nerve examination: PERRL, EOMI, visual richardson intact, corneal reflexes brisk symmetrically, sensory to face intact, mastication intact, no facial asymmetry is present, no dysarthria, hearing is intact symmetrically, soft palate elevates bilaterally upon phonation, gag reflex intact, flexes SCM and trapezius muscles symmetrically with full power, tongue protrudes midline, no atrophy or facial fasiculations present Results - Laboratory Findings CBC and BMP: 07/28/18 06:49 07/28/18 06:49 Abnormal lab findings: Abnormal lab results Sodium 135 mEq/L (136-145) L 07/28/18 06:49 Est GFR ( Amer) 58 (> 60) L 07/28/18 06:49 Est GFR (Non-Af Amer) 48 (> 60) L 07/28/18 06:49 Glucose 186 mg/dL (70-105) H 07/28/18 06:49 POC Glucose 152 mg/dL (70-99) H 07/28/18 11:54 Hemoglobin A1c 6.7 % (-5.6) H 07/28/18 06:49 Urine Clarity Hazy (Clear) A 07/27/18 11:48 Urine Protein 30 mg/dL (Neg-Trace) H 07/27/18 11:48 Urine Blood Large (Negative) H 07/27/18 11:48 Urine Nitrite Positive (Negative) A 07/27/18 11:48 Ur Leukocyte Esterase Moderate (Negative) H 10/13/18 11:48 Urine Microscopic RBC TNTC per hpf (0-3) H 07/27/18 11:48 Urine Microscopic WBC 50-100 per hpf (0-3) H 07/27/18 11:48 Ur Squamous Epith Cells Many per lpf (None-Few) H 07/27/18 11:48 Urine Bacteria Many per hpf (None-Few) H 07/27/18 11:48 Ur Culture Indicated? NO. (NO) A 07/27/18 11:48 - Diagnostic Findings Additional findings: EXAMINATION: MRI OF THE BRAIN WITHOUT CONTRAST 07/27/2018 2:17 pm TECHNIQUE: Multiplanar multisequence MRI of the brain was performed without the administration of intravenous contrast. COMPARISON: 05/17/2018 HISTORY: ORDERING SYSTEM PROVIDED HISTORY: dizziness, known pituitary tumor Headaches and dizziness. Abnormal gait. Known pituitary tumor. Ongoing evaluation. FINDINGS: INTRACRANIAL STRUCTURES/VENTRICLES: There are no areas of restricted diffusion identified to suggest an acute infarct. There is no acute intracranial hemorrhage. No mass effect or midline shift is present. There is a stable single focus of abnormal increased T2/FLAIR signal intensity within the subcortical white matter of the left parietal lobe. The brain is otherwise of normal signal intensities. There is no ventriculomegaly or abnormal extra-axial fluid collection present. Abnormal fullness of the pituitary gland to the right of midline is unchanged. The pituitary infundibulum is midline. The proximal portions of the [place] demonstrate normal flow voids. ORBITS: Limited evaluation of the orbits is unremarkable. SINUSES: The paranasal sinuses and mastoid air cells are clear. BONES/SOFT TISSUES: Bone marrow signal intensity is normal. MR/MR head/brain wo con IMPRESSION: 1. No acute intracranial process identified. 2. Stable asymmetric fullness of the pituitary gland to the right of midline consistent with the clinical history of a known pituitary tumor. 3. Stable single nonspecific focus of white matter signal abnormality within the subcortical white matter of the left parietal lobe. D/ / Donta Salinas MD / Donta Salinas MD Interpreting Provider: Donta Salinas MD Consult Discharge Plan - Plan Referrals: Clarisa Sylvester CNP [Primary Care Provider] -
[2018-07-28] MEDS ORDERED: *HR* Rivaroxaban 10 MG TABLET PO SCH (17:00)
[2018-07-28] MEDS: Insulin DETEMIR 100 UNIT/ML X5UNITS SQ SCH (21:30)
[2018-07-29] MEDS: 0.9 % Sodium Chloride 1,000 ML IVC SCH (07:56)
[2018-07-29] MEDS: Pregabalin 75 MG CAPSULE PO SCH ×2 (07:57→15:54)
[2018-07-29] MEDS: Multivit/Ca/Min/Fe/FA 1 TAB TABLET PO SCH (07:57)
[2018-07-29] MEDS: Ascorbic Acid 500 MG TABLET PO SCH (07:57)
[2018-07-29] MEDS: Loratadine 10 MG TABLET PO SCH (07:57)
[2018-07-29] MEDS: Insulin LISPRO 300 UNITS/3 ML VIAL SQ SCH ×2 (07:58→12:22)
[2018-07-29] MEDS: diazePAM 10 MG TABLET PO SCH ×2 (07:58→15:54)
[2018-07-29] MEDS: *HR* HYDROcodone/Acet 5/325 mg TABLET PO PRN (08:11)
[2018-07-29] MEDS: (Vilazodone Hcl [Viibryd] 40 MG) PO SCH (08:15)
[2018-07-29 11:52] VITALS: BP 126/86
--- NOTE | 2018-07-29 13:09 | Electrocardiograph Report ---
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
--- NOTE | 2018-07-29 13:37 | Discharge Summary ---
- NOTES TO OUTPATIENT PROVIDER Notes to Outpatient Provider: Patient was hospitalized here after a fall without any loss of consciousness. Patient has a pituitary tumor is inoperable. She is on Xarelto and as such CT scan of the head was done which did not show any acute intracranial bleeding. Then neurology was consulted to help evaluate patient. Patient underwent MRI of the brain which showed no acute process. She did have pituitary gland swelling and nonspecific focus of white matter signal abnormality within the left parietal lobe. She was evaluated by neurology and recommended cervical spine MRI which showed minimal narrowing of the neural foramina throughout the cervical region. Patient will follow up for this with her neuro-elementary teacher She was evaluated by physical therapy and recommended home health which will be arranged for the patient. At this time she is stable to be discharged home. Patient has chronic headaches related to her pituitary tumor. This responded to [place]. Patient will be discharged home with a prescription for [place] for a few days until she can be evaluated and managed by neurology as outpatient. Date of Encounter: 07/29/18 Time of Encounter: 13:33 - Discharge Diagnosis (1) Concussion without loss of consciousness Priority: Primary Status: Acute Qualifiers: Encounter type: initial encounter Qualified Code(s): S06.0X0A - Concussion without loss of consciousness, initial encounter (2) Diabetes mellitus type 2 in obese Priority: Secondary Status: Chronic (3) DVT prophylaxis Priority: Secondary Status: Acute (4) Pituitary abnormality Priority: Secondary Status: Chronic (5) Urinary tract infection Priority: Secondary Status: Resolved Qualifiers: Urinary tract infection type: acute cystitis Hematuria presence: with hematuria Qualified Code(s): N30.01 - Acute cystitis with hematuria (6) Acute renal failure Priority: Secondary Status: Resolved Qualifiers: Acute renal failure type: unspecified Qualified Code(s): N17.9 - Acute kidney failure, unspecified (7) (HFpEF) heart failure with preserved ejection fraction Priority: Secondary Status: Chronic (8) Morbidly obese Priority: Secondary Status: Acute (9) Fall Priority: Secondary Status: Acute Qualifiers: Encounter type: initial encounter Qualified Code(s): W19.XXXA - Unspecified fall, initial encounter (10) History of pulmonary embolism Priority: Secondary Status: Acute Hospital course: Ms. Crawford is a 52 year old female Patient with a history of nonresectable pituitary tumor who was hospitalized here after a fall without any loss of consciousness. She is on Xarelto and as such CT scan of the head was done which did not show any acute intracranial bleeding. Then neurology was consulted to help evaluate patient. Patient underwent MRI of the brain which showed no acute process. She did have pituitary gland swelling and nonspecific focus of white matter signal abnormality within the left parietal lobe. She was evaluated by neurology and recommended cervical spine MRI which showed minimal narrowing of the neural foramina throughout the cervical region. Patient will follow up for this with her neuro-elementary teacher She was evaluated by physical therapy and recommended home health which will be arranged for the patient. At this time she is stable to be discharged home. Patient has chronic headaches related to her pituitary tumor. This responded to [place]. Patient will be discharged home with a prescription for [place] for a few days until she can be evaluated and managed by neurology as outpatient. Discharge discussed with: patient, family, nurse, case management, service loss control consultant - Time Spent with Patient Total time spent providing and/or coordinating discharge services: Greater than 30 minutes (32 min) - Discharge Medications Prescriptions: Ciprofloxacin [Cipro] 500 mg PO BID #4 tablet HYDROcodone/Acet 5/325 mg [[place] 5-325 mg] 1 tab PO Q6H PRN 5 Days #20 tab PRN Reason: Moderate Pain Home Medications: Ascorbate Calcium [Vitamin C] 500 mg PO DAILY 05/02/18 [History] Bromocriptine Mesylate [Parlodel] 5 mg PO HS 05/02/18 [History] Calcium Carbonate [Calcium] 1,500 mg PO DAILY 05/02/18 [History] Carvedilol [Coreg] 6.25 mg PO BID 05/02/18 [History] Docusate Sodium [Colace] 100 mg PO DAILY 05/02/18 [History] Furosemide [Lasix] 20 mg PO HS 05/02/18 [History] Insulin Glargine,Hum.rec.anlog [Basaglar Parve[place] U-100] 63 unit SQ HS 05/02/18 [ History] Lisinopril [Zestril] 5 mg PO DAILY 05/02/18 [History] Multivitamin [One Daily Essential] 1 tab PO DAILY 05/02/18 [History] Potassium Chloride [K-Tab ER] 20 meq PO DAILY 05/02/18 [History] Pregabalin [Lyrica] 75 mg PO TID 05/02/18 [History] Vilazodone HCl [Viibryd] 40 mg PO DAILY 05/02/18 [History] diazePAM [Valium] 10 mg PO TID 05/02/18 [History] Acetaminophen [Tylenol] 650 mg PO Q6HR PRN tablet 05/07/18 [Rx] Atorvastatin [Lipitor] 40 mg PO HS tablet 05/07/18 [Rx] Furosemide [Lasix] 40 mg PO QAM tablet 05/07/18 [Rx] Loratadine [Claritin] 10 mg PO DAILY tablet 05/07/18 [Rx] Omeprazole [PriLOSEC] 20 mg PO DAILY capsule. 05/07/18 [Rx] Rivaroxaban [Xarelto] 20 mg PO DAILY 05/28/18 [History] Spironolactone [Aldactone] 25 mg PO BID 05/28/18 [History] Buspirone HCl [Buspar] 15 mg PO TID 07/27/18 [History] Diclofenac Sodium 100 gm TP DAILY 07/27/18 [History] Amitriptyline [Elavil] 25 mg PO HS 07/29/18 [History] Betamethasone Dipropionate 1 appl TP BID 07/29/18 [History] Ciprofloxacin [Cipro] 500 mg PO BID #4 tablet 07/29/18 [Rx] HYDROcodone/Acet 5/325 mg [[place] 5-325 mg] 1 tab PO Q6H PRN 5 Days #20 tab 07/29 [Rx] Tizanidine HCl 2 mg PO HS 07/29/18 [History] Allergies/Adverse Reactions: 3 Allergy/AdvReac Type Severity Reaction Status Date / Time Penicillins Allergy Swelling Verified 06/27/18 13:56 of Lip/Tongue/Throat codeine AdvReac Vomiting Verified 06/27/18 13:56 Date of admission: 07/27/18 13:04 Primary care physician: Clarisa Sylvester CNP Consults: 07/27/18 13:34 Consult to Case Management [CONS] Routine Comment: Consult to Nutrition [CONS] Routine Comment: Consulting Provider: NUTRITION Reason for Dietary Consult: PO Supplementation 07/27/18 15:34 Consult to Director Global Sales [CONS] Routine Reason for SW Consult: patient wants information about advance directives.. Discharging clinician: Preston Sarmiento Anticipated date of discharge: 07/29/18 - Constitutional Vitals: Temp Pulse Resp BP Pulse Ox 98.3 F 88 16 126/86 95 07/29/18 11:41 07/29/18 11:41 07/29/18 11:41 07/29/18 11:41 07/29/18 11:41 General appearance: Present: cooperative, A&O X 3, pleasant, obese, answers questions appropriately Exam: . - Respiratory Respiratory exam: Present: CTAB. Absent: accessory muscle use, rales, rhonchi, wheezes - Cardiovascular Cardiovascular exam: Present: RRR, +S1, +S2. Absent: diastolic murmur, gallop, rubs, systolic murmur - GI/Abdominal GI/Abdominal exam: Present: normal bowel sounds, soft, no peritoneal signs. Absent: distended, tenderness - Neurological Exam Neurological exam: Present: alert, oriented X3, no focal deficits. Absent: facial droop, speech deficit - Skin Skin exam: Present: dry, intact - Patient Status Disposition: Home, Self-Care Condition: Fair Functional capacity at discharge: independent ambulation Overall status at discharge: patient is progressing back to baseline - Discharge Instructions Instructions: Ciprofloxacin (By mouth), Hydrocodone/Acetaminophen (By mouth), Urinary Tract Infection in Women (DC), Urinary Tract Infection in Women (GEN), Diabetes Mellitus Type 2 in Adults (DC) Follow Up With: Clarisa Sylvester MANAGEMENT ANALYST [Primary Care Provider] - (Please call the office and make an appt for 1-2 weeks.) Additional Instructions: Follow up with care neuro-elementary teacher for further evaluation and management of her headache, pituitary tumor and cervical spine stenosis - Diet and Activity Activity: as per physical therapy, increase activity as tolerated Diet: diabetic diet, low fat, low cholesterol, low salt diet
--- NOTE | 2018-07-29 13:52 | Physician Discharge Referral ---
Home Health/Hosp Referral Info Transfer to: Home Health Provider in Charge Post Discharge: PCP - Diagnosis (1) Concussion without loss of consciousness Priority: Primary Status: Acute (2) Diabetes mellitus type 2 in obese Priority: Secondary Status: Chronic (3) Pituitary abnormality Priority: Secondary Status: Chronic (4) Urinary tract infection Priority: Secondary Status: Resolved (5) Acute renal failure Priority: Secondary Status: Resolved (6) (HFpEF) heart failure with preserved ejection fraction Priority: Secondary Status: Chronic (7) Morbidly obese Priority: Secondary Status: Acute (8) Fall Priority: Secondary Status: Acute (9) History of pulmonary embolism Priority: Secondary Status: Acute (10) DVT prophylaxis Priority: Secondary Status: Acute - Respiratory Orders Smoking Cessation: Smoking cessation has been advised. For more information, call the [employer] Tobacco Quit Line at 0-267-SWKS-NOW. - Diet/Nutrition Diet/Nutrition Orders: Cardiac, No Concentrated Sweets (Diabetic) - Activity Activity Orders: Walker - Services Needed Following services are medically necessary services: Nursing, Physical Therapy - Transfer Medications Prescriptions: Ciprofloxacin [Cipro] 500 mg PO BID #4 tablet HYDROcodone/Acet 5/325 mg [[place] 5-325 mg] 1 tab PO Q6H PRN 5 Days #20 tab PRN Reason: Moderate Pain Home Medications: Ascorbate Calcium [Vitamin C] 500 mg PO DAILY 05/02/18 [History] Bromocriptine Mesylate [Parlodel] 5 mg PO HS 05/02/18 [History] Calcium Carbonate [Calcium] 1,500 mg PO DAILY 05/02/18 [History] Carvedilol [Coreg] 6.25 mg PO BID 05/02/18 [History] Docusate Sodium [Colace] 100 mg PO DAILY 05/02/18 [History] Furosemide [Lasix] 20 mg PO HS 05/02/18 [History] Insulin Glargine,Hum.rec.anlog [Basaglar Kwikpen U-100] 63 unit SQ HS 05/02/18 [ History] Lisinopril [Zestril] 5 mg PO DAILY 05/02/18 [History] Multivitamin [One Daily Essential] 1 tab PO DAILY 05/02/18 [History] Potassium Chloride [K-Tab ER] 20 meq PO DAILY 05/02/18 [History] Pregabalin [Lyrica] 75 mg PO TID 05/02/18 [History] Vilazodone HCl [Viibryd] 40 mg PO DAILY 05/02/18 [History] diazePAM [Valium] 10 mg PO TID 05/02/18 [History] Acetaminophen [Tylenol] 650 mg PO Q6HR PRN tablet 05/07/18 [Rx] Atorvastatin [Lipitor] 40 mg PO HS tablet 05/07/18 [Rx] Furosemide [Lasix] 40 mg PO QAM tablet 05/07/18 [Rx] Loratadine [Claritin] 10 mg PO DAILY tablet 05/07/18 [Rx] Omeprazole [PriLOSEC] 20 mg PO DAILY capsule. 05/07/18 [Rx] Rivaroxaban [Xarelto] 20 mg PO DAILY 05/28/18 [History] Spironolactone [Aldactone] 25 mg PO BID 05/28/18 [History] Buspirone HCl [Buspar] 15 mg PO TID 07/27/18 [History] Diclofenac Sodium 100 gm TP DAILY 07/27/18 [History] Amitriptyline [Elavil] 25 mg PO HS 07/29/18 [History] Betamethasone Dipropionate 1 appl TP BID 07/29/18 [History] Ciprofloxacin [Cipro] 500 mg PO BID #4 tablet 07/29/18 [Rx] HYDROcodone/Acet 5/325 mg [[place] 5-325 mg] 1 tab PO Q6H PRN 5 Days #20 tab 07/29 [Rx] Tizanidine HCl 2 mg PO HS 07/29/18 [History] Allergies/Adverse Reactions: 3 Allergy/AdvReac Type Severity Reaction Status Date / Time Penicillins Allergy Swelling Verified 06/27/18 13:56 of Lip/Tongue/Throat codeine AdvReac Vomiting Verified 06/27/18 13:56 Certification: Further, I certify that my clinical findings support that this patient is homebound (i.e. absences from home require considerable and taxing effort and are for medical reasons or [employer] services or infrequently or short duration when for other reasons) because: Homebound Reason: Patient requires assistance of a person or device to safely leave home Attestation: My signature below is to certify that this patient is under my care and that I, or nurse practitioner, or a physician's assistant hvac mechanic working with me, has a face-to -face encounter with this patient.
== END 2018-07-29 16:16 | disposition home or self-care (01) ==
LOC: 3BNU 09:32 → EMEROOARM 09:32 → SUATTDRO 13:04 → 3BNU 15:00
PROVIDERS: ADMIT Internal Medicine; ATTEND Internal Medicine